=== PATIENT | female | born 2005 | race Caucasian/White ===

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

== ENCOUNTER → 2025-03-16 | Outpatient (CLI) | payer OTHER ==
[~2025-03-16] MED LIST: METHACHOLINE KIT (6 VIAL.NEB PREMIX) INH ONE
== END ==
LOC: M CARPUL 13:21
PROVIDERS: ATTEND Physician Assistant
DX: R06.09 Other forms of dyspnea (principal)
CPT/HCPCS: 94070; 95070; J7674